=== PATIENT | male | born 1975 | race Caucasian/White ===

== ENCOUNTER 2019-04-05 11:54 | Emergency (ER) | payer OTHER, SELFPAY ==
[2019-04-05 12:06] VITALS: BP 121/72; PULSE 73; RESP 16; TEMP 36.8; O2SAT 100
--- NOTE | 2019-04-05 12:36 | ED.URI ---
HPI - URI/Sore Throat General Chief Complaint: Upper Respiratory Infection Stated Complaint: Cough Time Seen by Provider: 04/05/19 12:30 Source: patient and RN notes reviewed Mode of arrival: ambulatory Limitations: no limitations History of Present Illness HPI Narrative: Patient presents today complaining of cough since 1:00 this morning with clear sputum and rhinorrhea. Cough is significantly worsened when he is lying flat. Denies fever, shortness of breath, body aches, chills or sweats. No history of asthma or COPD. He recently started smoking again after 14 years. He has tried no [id number] medication for his symptoms prior to arrival. MD elicited complaint: cough Related Data Allergies Allergy/AdvReac Type Severity Reaction Status Date / Time No Known Allergies Allergy Unverified 11/01/16 15:54 Review of Systems Review of Systems: Narrative: CONSTITUTIONAL: Denies body aches, fever, chills, or sweats. EYES: Denies visual changes, redness, or discharge. ENT: Denies congestion, sore throat, or otalgia.+ Rhinorrhea CARDIOVASCULAR: Denies chest pain, palpitations, or edema. RESPIRATORY: Denies dyspnea.+ Cough GASTROINTESTINAL: Denies abdominal pain, nausea, vomiting, or diarrhea. GENITOURINARY: Denies dysuria or hematuria. SKIN: Denies rash, itching, or wounds. MUSCULOSKELETAL: Denies back pain, joint pain, or myalgia. NEUROLOGIC: Denies headache, numbness, tingling, or weakness. PSYCH: Denies depression or anxiety. PMFSH Social History Social History Gender identity (if verbalized by the patient): Male Comments At time of signature, I have reviewed and agree with nursing past medical, surgical, social and family history unless otherwise noted. Please see nursing chart for further information. There is no relevant family history pertinent to the presenting complaint Exam Narrative: Exam Narrative: GENERAL: Mildly ill-appearing, well-nourished, and in no acute distress. HEAD: Normocephalic, atraumatic. EYES: EOMI. No redness or drainage. Conjunctivae normal. ENT: Mucous membranes pink and moist. Nares congested with copious rhinorrhea. TMs normal bilaterally. Throat normal. Uvula midline. NECK: Normal AROM. Supple. No lymphadenopathy. CHEST: No respiratory distress. Clear to auscultation. HEART: Regular rate and rhythm. No murmur appreciated. Normal peripheral pulses. EXTREMITIES: Normal range of motion. No edema. SKIN: Warm, dry, no rash. NEURO: No focal deficits. Alert and oriented x3. Gait steady. PSYCH: Normal affect. No signs of depression or anxiety. Course Vital Signs Vital signs: Vital Signs Temperature 98.3 F 04/05/19 12:06 Pulse Rate 73 04/05/19 12:06 Respiratory Rate 16 04/05/19 12:06 Blood Pressure 121/72 04/05/19 12:06 Pulse Oximetry 100 04/05/19 12:06 Temperature 98.3 F 04/05/19 12:06 Pulse Rate 73 04/05/19 12:06 Respiratory Rate 16 04/05/19 12:06 Blood Pressure 121/72 04/05/19 12:06 Pulse Oximetry 100 04/05/19 12:06 Reviewed. Pt has been instructed to follow up with his PCP regarding his elevated blood pressure today. MDM - URI/Sore Throat Differential Diagnosis Differential diagnosis: Likely upper respiratory infection, sinusitis, viral infection and bronchitis Critical Care Time Critical Care Time Critical Care Time: No Discharge Plan Discharge Clinical Impression: Upper respiratory infection Qualifiers: URI type: unspecified URI Qualified Code(s): J06.9 - Acute upper respiratory infection, unspecified Patient Disposition: Home, Self-Care Condition: Stable Instructions: Upper Respiratory Infection (DC) Additional Instructions: Your symptoms are likely due to a viral illness, which is not treated with antibiotics. Virus symptoms can last for up to 10-14 days. Take the Tylenol or ibuprofen for pain or fever. Take Mucinex during the day. Take the Tessalon Perles at night. Rest and stay hydrated. Follow up with [facility]
== END 2019-04-05 12:42 | disposition home or self-care (01) ==
PROVIDERS: Emergency Provider Nurse Practitioner; PCP Nurse Practitioner Family
DX: J06.9 Acute upper respiratory infection, unspecified (principal)
CPT/HCPCS: 99213; G0463

== ENCOUNTER 2023-01-07 04:36 | Emergency (ER) | payer BC, SELFPAY ==
--- NOTE | ~2023-01-07 | XR_ITS ---
Portable chest x-ray Comparison: None Clinical History: Wheezing Findings: Lungs are clear, without focal consolidation or pleural effusion. Cardiomediastinal silho uette is unremarkable. Bones and soft tissues are unremarkable. Impression: Normal chest. Reviewed, dictated and finalized at location . FIRM PARTNER Impression: Normal chest.
[2023-01-07 04:40] VITALS: BP 118/79; PULSE 79; RESP 14; TEMP 37.2; O2SAT 94
--- NOTE | 2023-01-07 04:48 | ED.GENADULT ---
HPI - General Adult General Chief complaint: Fever Stated complaint: Fever off and on for past two days Time Seen by Provider: 01/07/23 04:38 History of Present Illness HPI narrative: This is a 39-year-old male presenting ED with flu-like symptoms x3 days. Patient says that he has had a headache, body aches fatigue and ear pain for the last 3 days. He has had a fever of 101.7. He has been taking Tylenol intermittently with some relief in his symptoms. He denies sore throat, nausea vomiting diarrhea chest pain shortness of breath or abdominal pain. Patient is here tonight for relief of his headache. Denies sick contacts at home. Related Data Allergies Allergy/AdvReac Type Severity Reaction Status Date / Time No Known Allergies Allergy Verified 01/07/23 04:42 [facility] Social History Social History Gender identity (if verbalized by the patient): Male Exam Narrative: APPEARANCE: No apparent distress. Head: tympanic membranes are normal, no erythema or exudates in the posterior oropharynx EYES: EOMI, NOSE: Atraumatic NECK: Trachea midline RESPIRATORY: No increased rate of breathing, isolated wheezing in the left upper lobe CARDIOVASCULAR: RRR, no peripheral edema ABDOMINAL: Non-distended MUSCULOSKELETAl: No obvious deformities NEURO: Alert. Moving 4/4 extremities SKIN:: Warm, dry. Normal color PSYCHIATRIC: Normal affect Course Vital Signs Vital signs: Vital Signs Temperature 99.0 F 01/07/23 04:40 Pulse Rate 79 01/07/23 04:40 Respiratory Rate 14 01/07/23 04:40 Blood Pressure 118/79 01/07/23 04:40 Pulse Oximetry 94 01/07/23 04:40 Oxygen Delivery Room Air 01/07/23 04:40 Temperature 99.0 F 01/07/23 04:40 Pulse Rate 72 01/07/23 06:00 Respiratory Rate 97 H 01/07/23 06:00 Blood Pressure 128/91 H 01/07/23 06:00 Pulse Oximetry 98 01/07/23 06:00 Oxygen Delivery Room Air 01/07/23 04:40 Medical Decision Making [facility] Narrative Medical decision making narrative: -Course: 39-year-old male presenting with 3 days of flu-like symptoms. COVID positive. Treated with Motrin Tylenol and dexamethasone. Chest x-ray negative. Vital signs stable and not requiring supplemental oxygen. Discharged with supportive care and return precautions. -DDX includes but is not limited to: Viral syndrome, strep throat, sinusitis, acute otitis media -Co-morbidities complicating care: smoker -Social determinants of health: patient works for [employer]. -Independent interpretation of studies: -Interventions: Toradol, dexamethasone, Tylenol -Shared decision making / Disposition:D/C'd -RX: Motrin Tylenol Vital Signs Vital Signs: Vital Signs Temperature 99.0 F 01/07/23 04:40 Pulse Rate 79 01/07/23 04:40 Respiratory Rate 14 01/07/23 04:40 Blood Pressure 118/79 01/07/23 04:40 Pulse Oximetry 94 01/07/23 04:40 Oxygen Delivery Room Air 01/07/23 04:40 Temperature 99.0 F 01/07/23 04:40 Pulse Rate 72 01/07/23 06:00 Respiratory Rate 97 H 01/07/23 06:00 Blood Pressure 128/91 H 01/07/23 06:00 Pulse Oximetry 98 01/07/23 06:00 Oxygen Delivery Room Air 01/07/23 04:40 Lab Data Labs: Lab Results 01/07/23 Range/Units 04:54 Influenza A (RT-PCR) Negative (Negative) Influenza B (RT-PCR) Negative (Negative) RSV (RT-PCR) Negative (Negative) SARS-CoV-2 RNA (RT-PCR) Positive A (Negative) Discharge Plan Discharge Clinical Impression: COVID Patient Disposition: Home, Self-Care Condition: Stable Instructions: Antibiotic Form, Viral Syndrome (ED) Additional Instructions: You have covid. Please take Motrin Tylenol for symptoms. Drink plenty of fluids. Return ED if you develop chest pain shortness of breath or unable to tolerate liquids. Otherwise please follow-up your primary care physician. Prescriptions: New ibuprofen 800 mg tablet
[2023-01-07] MEDS: KETOROLAC 30 MG/ML VIAL (*BKC) IM (04:55)
[2023-01-07] MEDS: ACETAMINOPHEN 500 MG TABLET 1000 MG PO (04:55)
[2023-01-07 05:40] LABS: Influenza A QL RT-PCR Negative (Negative); Influenza B QL RT-PCR Negative (Negative); RSV RNA, RT-PCR Negative (Negative); SARS-CoV-2 RNA PCR Positive (Negative)
[2023-01-07 05:50] VITALS: O2SAT 97
[2023-01-07 06:00] VITALS: BP 128/91; PULSE 72; RESP 97; O2SAT 98
[2023-01-07 06:15] VITALS: BP 126/79; PULSE 71; RESP 14; O2SAT 99
[2023-01-07 06:20] VITALS: RESP 16
== END 2023-01-07 06:25 | disposition home or self-care (01) ==
PROVIDERS: Emergency Provider Emergency Medicine
DX: U07.1 COVID-19 (principal)
CPT/HCPCS: 71045; 87637; 96372; 99284; A9270; J1100; J1885

== ENCOUNTER 2023-02-23 08:27 | Emergency (ER) | payer BC, SELFPAY ==
[2023-02-23] VITALS (8 sets, daily range): BP systolic 118–133; BP diastolic 77–87; PULSE 64–81; RESP 13–20; TEMP 36.4; O2SAT 95–99
--- NOTE | ~2023-02-23 | XR_ITS ---
XR chest 2V DATE: 02/23/2023 09:01 INDICATION: Shortness of breath since since Covid infection 1 month ago TECHNIQUE: PA and lateral views COMPARISON: 01/07/2023 portable AP chest FINDINGS: Normal heart size. No hilar or mediastinal enlargement. Mild aortic arch calcification. No pulmonary infiltrate or consolidation, pleural effusion or pulmonary vascular congestion or pneumo thorax is detected. No active cardiopulmonary disease IMPRESSION: Reviewed, dictated and finalized at location A. CTOR OPERATING IMPRESSION:
--- NOTE | 2023-02-23 08:47 | ECG_ITS ---
Measurements Intervals [place] Rate: 74 P: 45 TN: 134 QRS: 74 QRSD: 90 T: 62 QT: 412 QTc: 457 Interpretive Statements SINUS RHYTHM NO PREVIOUS ECG AVAILABLE FOR COMPARISON Electronically Signed On 02-23-2023 13:52:54 PARTS CLASSIFIER by Teena Granado M.D.
[2023-02-23 09:14] LABS: Basophils Absolute Auto 0.1 K/mm3 (0.0-0.1); Basophils Percent Auto 1.1 % (0.2-1.2); Eosinophils Absolute Auto 1.1 K/mm3 (0-0.3); Eosinophils Percent Auto 11.6 % (0-4.4); Hematocrit 47.4 % (42.0-52.0); Hemoglobin 15.6 g/dL (14.0-18.0); Immature Granulocyte Absolute 0.03 K/mm3 (0.00-0.031); Immature Granulocyte Percent A 0.3 % (0-0.5); Lymphocytes Absolute Auto 3.25 K/mm3 (0.9-3.2); Mean Corpuscular HGB Conc 32.9 g/dl (32-36); Mean Corpuscular Hemoglobin 30.4 pg (26-34); Mean Corpuscular Volume 92.4 fl (80-100); Mean Platelet Volume 9.8 fl (7.4-10.4); Monocytes Absolute Auto 0.7 K/mm3 (0.1-0.6); Monocytes Percent Auto 7.5 % (2.6-8.5); Neutrophils Absolute Auto 3.9 K/mm3 (1.3-6.7); Neutrophils Percent Auto 43.5 % (45.5-73.1); Platelet Count Result 255 k/mm3 (150-375); Red Blood Count 5.13 M/mm3 (4.6-6.20); Red Cell Distribution Width 12.5 % (11.5-14.5)
--- NOTE | 2023-02-23 09:15 | ED.SOB ---
HPI - SOB/Dyspnea General Chief Complaint: Shortness of Breath/Dyspnea Stated Complaint: difficulty breathing Time Seen by Provider: 02/23/23 08:57 History of Present Illness HPI Narrative: Reports for evaluation for shortness of breath and chest tightness for approximately 1 month. Patient was diagnosed with COVID on 01/07/2023, states since then he has been having a productive cough with generalized chest tightness. He states he chronically has a smoker's talked cough, but feels that the cough is worsened since he was diagnosed with COVID. He states today he woke up with shortness of breath which feels worse which prompted him to come to the ED. He is also reporting nasal congestion. He denies fever, otalgia, sore throat, abdominal pain, nausea, vomiting, diarrhea, lower extremity edema or calf pain, history of VTE. He smokes approximately 1 pack per day for total of 23 years. Denies prior diagnosis of COPD or asthma. Related Data Allergies Allergy/AdvReac Type Severity Reaction Status Date / Time No Known Allergies Allergy Verified 02/23/23 08:46 Review of Systems Review of Systems: CONSTITUTIONAL: Denies fever, chills, or sweats. EYES: Denies visual changes, redness, or discharge. ENT: See HPI CARDIOVASCULAR: Denies chest pain, palpitations, or edema. RESPIRATORY: See HPI GASTROINTESTINAL: Denies abdominal pain, nausea, vomiting, or diarrhea. GENITOURINARY: Denies dysuria or hematuria. SKIN: Denies rash or itching. MUSCULOSKELETAL: Denies back pain, joint pain, or myalgia. NEUROLOGIC: Denies headache, numbness, or weakness. PSYCHIATRIC: Denies anxiety or depression. PMFSH Social History Social History Gender identity (if verbalized by the patient): Male Exam Narrative: GENERAL: Well-appearing, well-nourished, and in no acute distress. HEAD: Normocephalic, atraumatic. EYES: PERRLA and EOMI. ENT: Nares clear, no rhinorrhea or epistaxis. Mucous membranes moist. NECK: Supple. CHEST: No respiratory distress. Inspiratory and expiatory wheezing throughout all lung tian. Expiratory phase longer than inspiratory phase. No crackles or rhonchi. HEART: Regular rate and rhythm. No murmur heard. Normal peripheral pulses. ABDOMEN: Soft, nontender, nondistended, normal active bowel sounds. EXTREMITIES: Normal range of motion. No edema. Negative Homans bilaterally. SKIN: Warm, dry, no rash. NEURO: No focal deficits. Alert and oriented x3 Course Vital Signs Vital signs: Vital Signs Temperature 97.6 F 02/23/23 08:40 Pulse Rate 72 02/23/23 08:40 Respiratory Rate 20 02/23/23 08:40 Blood Pressure 118/77 02/23/23 08:40 Pulse Oximetry 99 02/23/23 08:40 Oxygen Delivery Room Air 02/23/23 08:40 Temperature 97.6 F 02/23/23 08:40 Pulse Rate 65 02/23/23 11:11 Respiratory Rate 14 02/23/23 11:11 Blood Pressure 129/84 02/23/23 11:11 Pulse Oximetry 95 02/23/23 11:11 Oxygen Delivery Room Air 02/23/23 11:11 MDM - SOB/Dyspnea MDM Narrative Medical decision making narrative: 47-year-old male reports for evaluation for persistent dyspnea and chest tightness for 1 month. See HPI for further history. Vitals are stable and he is satting 99% on room air, no active respiratory distress. Exam is significant for wheezing throughout all lung tian. Chest x-ray shows no acute cardiopulmonary disease. CBC and chemistries are largely unremarkable. Troponin less than 0.012. EKG shows no ischemic changes. BNP normal. COVID, flu and RSV are negative. PERC negative. Patient received DuoNebs and Solu-Medrol with improvement in symptoms. He is continuing to sat 95-99% on room air. Labs and imaging discussed. Symptoms likely secondary to undiagnosed COPD with exacerbation versus atypical pneumonia or bronchitis. Will d/c home and start him on doxycycline, Medrol Dosepak and albuterol inhaler and encourage close follow-up with PC
[2023-02-23] MEDS: ALBUTEROL SULFATE NEB 2.5 MG/3 ML INH INHALATION (09:23)
[2023-02-23] MEDS: IPRATROPIUM BR 0.02% INH SOLN 0.5 MG/2.5 ML VIAL INHALATION (09:23)
[2023-02-23] MEDS: MAGNESIUM SULF 2 GM/WATER 50ML 2 GM/50 ML BAG IVPB (09:31)
[2023-02-23] MEDS: methylPREDNISolone SOD SUCC 125 MG VIAL IV PUSH (09:31)
[2023-02-23 09:42] LABS: Alanine Aminotransferase 15 U/L (6-50); Albumin Level 4.2 g/dL (3.5-5.1); Alkaline Phosphatase 85 U/L (38-126); Anion Gap 5 mmol/L (8-16); Aspartate Amino Transferase 25 U/L (17-59); Bilirubin,Total 0.5 mg/dL (0.2-1.3); Blood Urea Nitrogen 15 mg/dL (9-20); Calcium 9.4 mg/dL (8.4-10.2); Carbon Dioxide 31 mmol/L (22-30); Chloride 104 mmol/L (98-107); Estimated CRCL calculation 105 ml/min; Estimated Glomerular Filt Rate > 60; Glucose 84 mg/dL (65-110); Sodium 140 mmol/L (137-145)
[2023-02-23 09:52] LABS: NT Pro B Type Natriuretic Pept < 20 pg/mL (19.9-100); Troponin I < 0.012 ng/mL (0.000-0.034)
[2023-02-23 10:19] LABS: Influenza A QL RT-PCR Negative (Negative); Influenza B QL RT-PCR Negative (Negative); RSV RNA, RT-PCR Negative (Negative); SARS-CoV-2 RNA PCR Negative (Negative)
== END 2023-02-23 12:29 | disposition home or self-care (01) ==
PROVIDERS: Emergency Medicine; Emergency Provider Physician Assistant
DX: J40 Bronchitis, not specified as acute or chronic (principal); F17.200 Nicotine dependence, unspecified, uncomplicated; Z20.822 Contact with and (suspected) exposure to COVID-19
CPT/HCPCS: 36415; 71046; 80053; 83880; 84484; 85025; 87637; 93005; 94640; 96365; 96375; 99284; J2930; J3475

== ENCOUNTER 2024-02-18 09:54 | Emergency (ER) | payer SELFPAY ==
[2024-02-18 10:09] VITALS: BP 108/71; PULSE 88; RESP 20; TEMP 36.3; O2SAT 98
--- NOTE | 2024-02-18 11:02 | ED.URI ---
HPI - URI/Sore Throat General Chief Complaint: Upper Respiratory Infection Stated Complaint: SOB,cough Time Seen by Provider: 02/18/24 11:03 Source: patient, RN notes reviewed and old records reviewed Mode of arrival: ambulatory Limitations: no limitations History of Present Illness HPI Narrative: 48-year-old male presents to the [facility] with complaints of cough, shortness of breath. States that he woke up coughing about 230 this morning. Has had shortness of breath since. Has been out of his inhaler for several weeks. Related Data Allergies Allergy/AdvReac Type Severity Reaction Status Date / Time No Known Allergies Allergy Verified 02/18/24 10:17 Review of Systems Review of Systems: All systems reviewed & are unremarkable except as noted in HPI and below Constitutional: Constitutional: Reports no additional constitutional complaints ENT: Reports system reviewed and no additional complaints, except as documented Cardiovascular: Cardiovascular: Reports no additional cardiovascular complaints, Denies chest pain and Denies dyspnea Respiratory: Respiratory: Reports as per HPI, Denies chest congestion, Reports cough, Reports dyspnea and Reports wheezing Musculoskeletal: Musculoskeletal: Reports no additional musculoskeletal complaints Integumentary/Breasts: Skin/Breast: Reports system reviewed and no additional complaints, except as docu [facility] Social History Social History (Updated 02/18/24 @ 18:12 by Shanice Alejo, MANAGER SUPPLIER) Smoking status: Current every day smoker Gender identity (if verbalized by the patient): Male Comments At the time of my signature, I reviewed and agree with the nursing past medical, surgical, social, and family history. There is no relevant family history pertinent to the patient complaint. Exam Const: General: cooperative, no acute distress, well developed, alert, uncomfortable and well nourished Nutritional Appearance: well nourished Orientation/consciousness: patient oriented x3 Limitations: no limitations HENMT: Head: normal to inspection Ears: hearing grossly normal bilaterally, external ears normal and TM's normal bilaterally Face/Nose/Sinus: normal facial exam and face symmetric Face and sinus: normal facial exam and face symmetric Mouth: Yes Normal oral and palatal mucosa present, Yes lip normal and Yes tongue normal Throat: posterior oropharynx normal, tonsils normal and uvula midline Eyes: General: appearance normal, both eyes and all related structures Neck: Neck: normal visual inspection, full ROM, no lymphadenopathy and no meningeal signs Chest: Chest palpation & inspection: normal inspection of the chest Resp: Effort & Inspection: normal respiratory effort and able to speak in complete sentences Auscultation: no crackles, no rales, no rhonchi and wheezes expiratory wheezes, inspiratory wheezes and throughout Cardio: Rate: regular rate Skin: General skin exam: normal color and no rashes or lesions noted Neuro: General: patient oriented x3, gait normal, moves all extremities and no meningeal signs Cognition (Neuro): normal cognition Speech: normal speech Gait exam (Neuro): Normal gait present Extrem: General: normal to inspection, full ROM, capillary refill normal and normal gait Psych: Appearance: grossly normal and well kempt Mental Status: mental status grossly normal Speech and movement: Normal speech and movement present and Clear speech present Affect: normal affect Attitude: cooperative Course Course Emergency Course: Patient reassessed post breathing treatment, reports improvement of breathing. Wheezing now only expiratory right and left upper, faint. Otherwise cleared now to auscultation. Level of Care: Express Care Visit Vital Signs Vital signs: Vital Signs Temperature 97.4 F L 02/18/24 10:09 Pulse Rate 88 02/18/24 10:09 Respiratory Rate 20 02/18/24 10:09 Blood Pressure 108/71 02/18/24 10:09 Pulse Oximetry 98 02/18/24 10:09 Oxygen Delivery Room Air 02/18/24 10:09 Temperature 97.4 F L 02/18/24 10:09 Pulse Rate 88 02/18/24 10:09 Respiratory Rate 20 02/18/24 10:09 Blood Pressure 108/71 02/18/24 10:09 Pulse Oximetry 98 02/18/24 10:09 Oxygen Delivery Room Air 02/18/24 10:09 Reviewed MDM - URI/Sore Throat MDM Narrative Medical decision making narrative: Patient sitting in exam room. Nontoxic, vitals stable. Patient presents cough and shortness of breath. Wheezing noted on exam. Breathing treatment done, improvement of symptoms Patient appropriate for outpatient treatment with inhaler, referral to primary, prednisone Discharge instructions reviewed with patient, as well as provided in writing per nursing staff. The instructions also include specific and strict return/GO TO THE ER as well as f/u information. All questions have been answered, and the patient deny any further questions with discharge and discharge plan. Some parts of this dictation were generated by voice recognition software and may contain typographical and/or grammatical inaccuracies. Differential Diagnosis Differential diagnosis: Likely upper respiratory infection, viral infection and bronchitis Critical Care Time Critical Care Time Critical Care Time: No Discharge Plan Discharge Clinical Impression: Bronchitis Patient Disposition: Home, Self-Care Condition: Stable Instructions: Antibiotic Form, Acute Bronchitis (ED) Additional Instructions: Stop smoking Take prednisone as prescribed Use your inhaler as prescribed Follow-up with primary care provider For new or worsening symptoms go directly to the emergency room Patient Language: Belarusian Prescriptions: New prednisone 20 mg tablet See Rx Instructions .Route .COMPLEX Qty: 9 0RF Rx Instructions: Take 40 mg daily for 3 days, 20 mg daily for 3 days albuterol sulfate 90 mcg/actuation HFA aerosol inhaler 2 puff inhalation QID PRN (Reason: shortness of breath or wheezing) Qty: 6.7 0RF Follow-up/Referrals: PHYSICIAN,AUTOMATIC CASTING MACHINE OPERATOR [Primary Care Provider] - Stand Alone Forms: Work/School Release IP Time of Disposition: 11:41
[2024-02-18] MEDS: IPRATROPIUM 0.5 MG/ALBUTEROL SULFATE 2.5 MG AMPUL.NEB 3 ML INHALATION (11:16)
== END 2024-02-18 11:45 | disposition home or self-care (01) ==
PROVIDERS: Emergency Provider Nurse Practitioner
DX: J40 Bronchitis, not specified as acute or chronic (principal); F17.200 Nicotine dependence, unspecified, uncomplicated
CPT/HCPCS: 99213; G0463

== ENCOUNTER 2024-08-26 01:59 | Emergency (ER) | payer SELFPAY ==
--- NOTE | ~2024-08-26 | XR_ITS ---
Portable chest x-ray Comparison: 02/23/2023 Clinical History: Wheezing Findings: Lungs are clear, without focal consolidation or pleural effusion. Cardiomediastinal silho uette is stable. Bones and soft tissues are unremarkable. Impression: Normal chest. Reviewed, dictated and finalized at [facility]. Impression: Normal chest.
[2024-08-26 02:09] VITALS: BP 114/75; PULSE 59; RESP 20; TEMP 36.6; O2SAT 96
--- NOTE | 2024-08-26 02:09 | ED.GENADULT ---
HPI - General Adult General Chief complaint: Shortness of Breath/Dyspnea Stated complaint: sob, wheezing Time Seen by Provider: 08/26/24 02:00 History of Present Illness HPI narrative: 48-year-old male presenting to the emergency department for evaluation for worsening shortness of breath. Patient does have history of asthma. While he was camping he had onset of wheezing and felt too bad to take the time to look for his inhaler. Patient called EMS and patient was treated with a DuoNeb EN route. Upon arrival emergency department patient states he does feel significantly improved and is resting comfortably. Patient states he does have history of asthma does continue to smoke. Related Data Allergies Allergy/AdvReac Type Severity Reaction Status Date / Time No Known Allergies Allergy Verified 02/18/24 10:17 Review of Systems Review of Systems: All systems reviewed & are unremarkable except as noted in HPI and below PMFSH Social History Social History (Updated 02/18/24 @ 18:12 by Shanice Alejo, TERRAZZO WORKER) Smoking status: Current every day smoker Gender identity (if verbalized by the patient): Male Exam Narrative: APPEARANCE: Well appearing, no pain, no distress, well-nourished. HEAD: normocephalic, atraumatic. EYES: PERRLA/EOMI, conjunctivae clear. NOSE: Normal no drainage EARS:TMS clear with good light reflex. THROAT: Pharynx clear, no exudate. NECK: Supple. No adenopathy, no masses. RESPIRATORY: Expiratory wheeze CARDIOVASCULAR: Regular rate and rhythm without murmurs rubs or gallops. ABDOMINAL: Soft, nontender, nondistended, normal bowel sounds MUSCULOSKELETAL: Moves all extremities. Strength/ROM intact, No edema, No calf tenderness. NEURO: Alert. Cranial nerves II through XII intact. Good gait. Good coordination SKIN: Warm, dry. Normal Color Course Vital Signs Vital signs: Vital Signs Temperature 98 F 08/26/24 02:09 Pulse Rate 59 L 08/26/24 02:09 Respiratory Rate 20 08/26/24 02:09 Blood Pressure 114/75 08/26/24 02:09 Pulse Oximetry 96 08/26/24 02:09 Oxygen Delivery Room Air 08/26/24 02:09 Temperature 98 F 08/26/24 02:09 Pulse Rate 78 08/26/24 03:30 Respiratory Rate 20 08/26/24 03:30 Blood Pressure 103/68 08/26/24 03:30 Pulse Oximetry 94 08/26/24 03:30 Oxygen Delivery Room Air 08/26/24 02:15 Medical Decision Making MDM Narrative Medical decision making narrative: 48-year-old male with history of chronic bronchitis that continues to smoke presents to emergency department for evaluation for shortness breath. Patient's shortness breath was improved with a breathing treatment EN route. Patient did have some minor wheeze on initial evaluation and he was treated with an additional breathing treatment. Patient feels further improved. Patient's chest x-ray was negative for acute cardiopulmonary abnormality. Patient was encouraged to quit smoking. Patient will be started on prednisone burst for the next 5 days and provided additional albuterol. Patient was encouraged of close follow-up with his primary care physician. Differential Diagnosis Differential Diagnosis: Pneumonia, COPD, asthma Vital Signs Vital Signs: Vital Signs Temperature 98 F 08/26/24 02:09 Pulse Rate 59 L 08/26/24 02:09 Respiratory Rate 20 08/26/24 02:09 Blood Pressure 114/75 08/26/24 02:09 Pulse Oximetry 96 08/26/24 02:09 Oxygen Delivery Room Air 08/26/24 02:09 Temperature 98 F 08/26/24 02:09 Pulse Rate 78 08/26/24 03:30 Respiratory Rate 20 08/26/24 03:30 Blood Pressure 103/68 08/26/24 03:30 Pulse Oximetry 94 08/26/24 03:30 Oxygen Delivery Room Air 08/26/24 02:15 Imaging Data Radiologist's impression: Impressions Chest X-Ray 08/26/24 05:26 Impression: Normal chest. Discharge Plan Discharge Clinical Impression: Chronic bronchitis Patient Disposition: Home Condition: Stable Instructions: Antibiotic Form, Chronic Bronchitis (DC) Additional Instructions: Quit smoking. Take prednisone as directed for the next 5 days until completed. Albuterol inhaler as needed for shortness of breath. Have close follow-up with your primary care physician. If you have any worsening symptoms then please call or return to the emergency department. Patient Language: Polish Prescriptions: New prednisone 50 mg tablet 50 mg PO DAILY 5 Days Qty: 5 0RF albuterol sulfate 90 mcg/actuation HFA aerosol inhaler 1 puff inhalation QID Qty: 6.7 0RF Discontinued prednisone 20 mg tablet See Rx Instructions .Route .COMPLEX Qty: 9 0RF Rx Instructions: Take 40 mg daily for 3 days, 20 mg daily for 3 days albuterol sulfate 90 mcg/actuation HFA aerosol inhaler 2 puff inhalation QID PRN (Reason: shortness of breath or wheezing) Qty: 6.7 0RF Follow-up/Referrals: PHYSICIAN,CROP RESEARCH SCIENTIST [Primary Care Provider] -
[2024-08-26 02:15] VITALS: O2SAT 96
[2024-08-26] MEDS: predniSONE 20 MG TABLET 60 MG PO (02:20)
[2024-08-26] MEDS: ALBUTEROL SULFATE NEB 2.5 MG/3 ML INH 5 MG INHALATION (02:21)
[2024-08-26 02:22] VITALS: PULSE 65; RESP 20
[2024-08-26 02:40] VITALS: PULSE 67; RESP 20
[2024-08-26 03:30] VITALS: BP 103/68; PULSE 78; RESP 20; O2SAT 94
== END 2024-08-26 03:30 | disposition home or self-care (01) ==
PROVIDERS: Emergency Provider Emergency Medicine
DX: J44.89 Other specified chronic obstructive pulmonary disease (principal); F17.200 Nicotine dependence, unspecified, uncomplicated
CPT/HCPCS: 71045; 94640; 99283; J7512

== ENCOUNTER 2024-10-09 01:41 | Emergency (ER) | payer MEDICAID, SELFPAY ==
--- NOTE | ~2024-10-09 | XR_ITS ---
EXAMINATION: XR chest 1V portable DATE: 10/09/2024 02:28 INDICATION: Asthma TECHNIQUE: frontal view of the chest was obtained. COMPARISON: Chest radiograph dated 08/26/2024 FINDINGS: The lungs remain clear with no focal airspace opacities, pulmonary edema, pleural effusion or pneumot horax. The cardiomediastinal silhouette is normal. Visualized bones and soft tissues are unremarkable . IMPRESSION: 1. No acute cardiopulmonary disease. Reviewed, dictated and finalized at location A.
[2024-10-09 01:50] VITALS: BP 122/80; PULSE 82; RESP 22; TEMP 36.3; O2SAT 100
[2024-10-09 02:02] VITALS: BP 130/81; PULSE 77; RESP 24; TEMP 36.3; O2SAT 100
[2024-10-09] MEDS: SODIUM CHLORIDE 0.9% IV 1,000 ML 999 ML IV CONT (02:06)
[2024-10-09] MEDS: MAGNESIUM SULF 2 GM/WATER 50ML 2 GM/50 ML BAG IVPB (02:10)
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
[2024-10-09 02:24] LABS: Hematocrit 45.4 % (42.0-52.0); Hemoglobin 15.2 g/dL (14.0-18.0); Immature Granulocyte Percent A 0.3 % (0-0.5); Lymphocytes Absolute Auto 3.21 K/mm3 (0.9-3.2); Mean Corpuscular HGB Conc 33.5 g/dl (32-36); Mean Corpuscular Hemoglobin 30.5 pg (26-34); Mean Corpuscular Volume 91.0 fl (80-100); Nucleated Red Blood Cells Absolute Auto 0.000 K/mm3 (0.0-0.012); Nucleated Red Blood Cells Perc 0.0 % (0.0-0.2); Platelet Count Result 263 k/mm3 (150-375); Red Blood Count 4.99 M/mm3 (4.6-6.20); White Blood Count 10.3 K/mm3 (4.5-10.0)
[2024-10-09] MEDS: ALBUTEROL SULFATE NEB 2.5 MG/3 ML INH 10 MG INHALATION (02:25)
[2024-10-09] MEDS: IPRATROPIUM BR 0.02% INH SOLN 0.5 MG/2.5 ML VIAL 1 MG INHALATION (02:25)
[2024-10-09 02:34] VITALS: PULSE 70; RESP 18
--- NOTE | 2024-10-09 02:35 | ED.ASTHMA ---
HPI - Asthma General Chief Complaint: Asthma Stated Complaint: asthma Time Seen by Provider: 10/09/24 02:02 History of Present Illness HPI Narrative: 48-year-old male with a history of asthma as well as chronic bronchitis. He presents to the emergency department with shortness or breath. States it feels like the last time he had an asthma exacerbation. No history of hospitalizations or intubations according to the patient. He states he ran out of his albuterol inhaler at home. Last time he had symptoms was in July. Denies any triggers but states that he has been coughing. No nausea, vomiting, chest pain, fever, chills. Was otherwise in his normal state of health. Patient is audible wheezing and tachypneic in triage. Related Data Allergies Allergy/AdvReac Type Severity Reaction Status Date / Time No Known Allergies Allergy Verified 10/09/24 01:54 Review of Systems Review of Systems: As reviewed above in [facility] Social History Social History Smoking status: Current every day smoker Gender identity (if verbalized by the patient): Male Exam Narrative: GENERAL: [Well-appearing, well-nourished, and in no acute distress.] HEAD: [Normocephalic, atraumatic.] EYES: [PERRLA and EOMI.] ENT: Nares clear, no rhinorrhea or epistaxis. Mucous membranes moist. NECK: Supple. CHEST: Decreased air entry with tachypnea and wheezing on auscultation in most lung tian. No retractions, speaking with some dyspnea HEART: [Regular rate and rhythm]. No murmur heard. [Normal peripheral pulses.] ABDOMEN: [Soft, nondistended], [nontender], [No rigidity or guarding] EXTREMITIES: Normal range of motion. [No edema.] SKIN: Warm, dry, no rash. NEURO: [No focal deficits]. Alert and oriented [x3.] PSYCH: [Normal mood and affect.] Course Vital Signs Vital signs: Vital Signs Temperature 36.3 C L 10/09/24 01:50 Pulse Rate 82 10/09/24 01:50 Respiratory Rate 22 H 10/09/24 01:50 Blood Pressure 122/80 10/09/24 01:50 Pulse Oximetry 100 10/09/24 01:50 Oxygen Delivery Simple Face Mask 10/09/24 01:50 Oxygen Flow Rate 8 10/09/24 01:50 Temperature 36.4 C 10/09/24 04:13 Pulse Rate 57 L 10/09/24 04:13 Respiratory Rate 18 10/09/24 04:13 Blood Pressure 132/61 10/09/24 04:13 Pulse Oximetry 100 10/09/24 04:13 Oxygen Delivery High Flow Nasal Cannula 10/09/24 03:33 Oxygen Flow Rate 3 10/09/24 03:33 MDM - Asthma MDM Narrative Medical decision making narrative: 48-year-old male with a history of asthma as well as chronic bronchitis. He presents to the emergency department with shortness or breath. States it feels like the last time he had an asthma exacerbation. No history of hospitalizations or intubations according to the patient. He states he ran out of his albuterol inhaler at home. Last time he had symptoms was in July. Denies any triggers but states that he has been coughing. No nausea, vomiting, chest pain, fever, chills. Was otherwise in his normal state of health. Patient is audible wheezing and tachypneic in triage. Patient has some expiratory wheezing on auscultation with decreased air entry and some tachypnea with conversational dyspnea. Saturating well on room air. No tachycardia or blood pressure concerns. Given patient's significant asthma exacerbation respiratory therapy was called to bedside for 1 hour of continuous nebulization treatments including albuterol and Atrovent. He was given steroids as well as a magnesium bolus and fluid boluses. Laboratory studies obtained as well as a chest x-ray to rule out pneumonia, bronchitis or pneumothorax. Patient placed on shelter monitor and pulse oximetry infrequently re-evaluated. Patient had significant improvement during repeat auscultation repeat evaluations. Doing better on assessments and comfortable. X-ray without any acute findings such as pneumonia or bronchitis. Laboratory studies are reassuring. Patient saturating well on room air with normal vital signs. Observed here for several hours with no recurrence of symptoms. Safe for discharge home and will be sent home with refill of his albuterol and given steroids for several days. Medical Records Attestation: I reviewed the patient's medical records. Lab Data Attestation: I reviewed the patient's lab results. 10/09/24 02:19 08/10/25 02:19 Labs: Lab Results 10/09/24 Range/Units 02:19 WBC 10.3 H (4.5-10.0) K/mm3 RBC 4.99 (4.6-6.20) M/mm3 Hgb 15.2 (14.0-18.0) g/dL Hct 45.4 (42.0-52.0) % MCV 91.0 (80-100) fl MCH 30.5 (26-34) pg MCHC 33.5 (32-36) g/dl RDW 12.4 (11.5-14.5) % Plt Count 263 (150-375) k/mm3 MPV 9.3 (7.4-10.4) fl Immature Gran % (Auto) 0.3 (0-0.5) % Neut % (Auto) 52.7 (45.5-73.1) % Lymph % (Auto) 31.2 (18.3-44.2) % [place] % (Auto) 7.6 (2.6-8.5) % Eos % (Auto) 7.6 H (0-4.4) % Baso % (Auto) 0.6 (0.2-1.2) % Lymph # (Auto) 3.21 H (0.9-3.2) K/mm3 [place] # (Auto) 0.8 H (0.1-0.6) K/mm3 Eos # (Auto) 0.8 H (0-0.3) K/mm3 Baso # (Auto) 0.1 (0.0-0.1) K/mm3 Abs Immat Gran (auto) 0.03 (0.00-0.031) K/mm3 Absolute Neuts (auto) 5.4 (1.3-6.7) K/mm3 Absolute Nucleated RBC 0.000 (0.0-0.012) K/mm3 Nucleated RBC % 0.0 (0.0-0.2) % Sodium 139 (137-145) mmol/L Potassium 3.8 (3.4-5.0) mmol/L Chloride 104 (98-107) mmol/L Carbon Dioxide 28 (22-30) mmol/L Anion Gap 7 (4-12) mmol/L BUN 13 (9-20) mg/dL Creatinine 0.97 (0.7-1.3) mg/dL Estim Creat Clear Calc 87 ml/min Estimated GFR > 60 (59 - ) Glucose 82 (65-110) mg/dL Calcium 9.5 (8.4-10.2) mg/dL Imaging Data Attestation: I personally reviewed and interpreted this imaging study as follows: My impression: no acute findings Critical Care Time Critical Care Time Critical Care Time: Yes Total Critical Care Time: 35 Discharge Plan Discharge Clinical Impression: Asthma with acute exacerbation Patient Disposition: Home Condition: Stable Instructions: Antibiotic Form, Asthma (ED) Additional Instructions: Follow-up with regular doctor, we have prescribed to a refill of your albuterol in several days with steroids. Return with any emergent concerns. Patient Language: Serbian Prescriptions: New prednisone 50 mg tablet 50 mg PO DAILY 5 Days Qty: 5 0RF albuterol sulfate 90 mcg/actuation HFA aerosol inhaler 2 puff inhalation QID PRN (Reason: shortness of breath or wheezing) Qty: 8.5 0RF No Action prednisone 50 mg tablet 50 mg PO DAILY 5 Days Qty: 5 0RF albuterol sulfate 90 mcg/actuation HFA aerosol inhaler 1 puff inhalation QID Qty: 6.7 0RF Follow-up/Referrals: PHYSICIAN,EDUCATIONAL TECHNOLOGY COORDINATOR [Primary Care Provider] - Time of Disposition: 04:03
[2024-10-09 02:46] LABS: Anion Gap 7 mmol/L (4-12); Blood Urea Nitrogen 13 mg/dL (9-20); Calcium 9.5 mg/dL (8.4-10.2); Carbon Dioxide 28 mmol/L (22-30); Chloride 104 mmol/L (98-107); Estimated CRCL calculation 87 ml/min; Estimated Glomerular Filt Rate > 60; Glucose 82 mg/dL (65-110); Potassium 3.8 mmol/L (3.4-5.0); Sodium 139 mmol/L (137-145)
[2024-10-09 03:32] VITALS: PULSE 77; RESP 18
[2024-10-09 03:33] VITALS: O2SAT 97
[2024-10-09 04:13] VITALS: BP 132/61; PULSE 57; RESP 18; TEMP 36.4; O2SAT 100
== END 2024-10-09 04:14 | disposition home or self-care (01) ==
PROVIDERS: Emergency Provider Student in an Organized Health Care Education/Training Program
DX: J45.901 Unspecified asthma with (acute) exacerbation (principal); F17.200 Nicotine dependence, unspecified, uncomplicated
CPT/HCPCS: 36415; 71045; 80048; 85025; 94640; 96365; 96375; 99284; J2919; J3475; J7030

== ENCOUNTER 2024-12-17 06:09 | Emergency (ER) | payer OTHER, SELFPAY ==
--- NOTE | ~2024-12-17 | XR_ITS ---
Examination: XR chest 2V Clinical History: cough Comparison: 10/09/2024 Technique: PA and Lateral Findings: Cardiomediastinal silhouette normal size and configuration. Lungs clear. No acute bony abnormality. IMPRESSION: 1. No acute cardiopulmonary findings. Reviewed, dictated and finalized at location R.
[2024-12-17 06:14] VITALS: BP 123/84; PULSE 71; RESP 22; TEMP 36.8; O2SAT 99
[2024-12-17 07:14] VITALS: O2SAT 100
[2024-12-17 07:16] VITALS: BP 121/82; PULSE 64; RESP 18; O2SAT 100
--- NOTE | 2024-12-17 07:42 | ED_ITS ---
HPI - General Adult General Chief complaint: Upper Respiratory Infection Stated complaint: shortness of breath, cough Time Seen by Provider: 12/17/24 07:20 History of Present Illness HPI narrative: 49-year-old male presents to the emergency department for evaluation for persistent cough and congestion. Patient states he is a smoker. Patient states he does have chronic bronchitis. Patient states he did run out of his albuterol inhaler last night. Related Data Allergies Allergy/AdvReac Type Severity Reaction Status Date / Time No Known Allergies Allergy Verified 10/09/24 01:54 Review of Systems Review of Systems: All systems reviewed & are unremarkable except as noted in HPI and below PMFSH Social History Social History Smoking status: Current every day smoker Gender identity (if verbalized by the patient): Male Exam Narrative: APPEARANCE: Well appearing, no pain, no distress, well-nourished. HEAD: normocephalic, atraumatic. EYES: PERRLA/EOMI, conjunctivae clear. NOSE: Normal no drainage EARS:TMS clear with good light reflex. THROAT: Pharynx clear, no exudate. NECK: Supple. No adenopathy, no masses. RESPIRATORY: Expiratory wheeze CARDIOVASCULAR: Regular rate and rhythm without murmurs rubs or gallops. ABDOMINAL: Soft, nontender, nondistended, normal bowel sounds MUSCULOSKELETAL: Moves all extremities. Strength/ROM intact, No edema, No calf tenderness. NEURO: Alert. Cranial nerves II through XII intact. Good gait. Good coordination SKIN: Warm, dry. Normal Color Course Vital Signs Vital signs: Vital Signs Temperature 98.2 F 12/17/24 06:14 Pulse Rate 71 12/17/24 06:14 Respiratory Rate 22 H 12/17/24 06:14 Blood Pressure 123/84 12/17/24 06:14 Pulse Oximetry 99 12/17/24 06:14 Oxygen Delivery Room Air 12/17/24 06:14 Temperature 98.2 F 12/17/24 06:14 Pulse Rate 66 12/17/24 08:42 Respiratory Rate 18 12/17/24 08:42 Blood Pressure 127/85 12/17/24 08:42 Pulse Oximetry 96 12/17/24 08:42 Oxygen Delivery Room Air 12/17/24 07:14 Medical Decision Making MDM Narrative Medical decision making narrative: 49-year-old male presents emergency department for evaluation for increased cough and wheeze after running out of his albuterol inhaler last night. Patient was treated with nebulized albuterol and did feel improved emergency department. Chest x-ray shows no acute cardiopulmonary abnormality. Patient was negative for COVID flu and RSV. Patient was encouraged to refrain from smoking. Differential Diagnosis Differential Diagnosis: COVID flu RSV, pneumonia, COPD, bronchitis Vital Signs Vital Signs: Vital Signs Temperature 98.2 F 12/17/24 06:14 Pulse Rate 71 12/17/24 06:14 Respiratory Rate 22 H 12/17/24 06:14 Blood Pressure 123/84 12/17/24 06:14 Pulse Oximetry 99 12/17/24 06:14 Oxygen Delivery Room Air 12/17/24 06:14 Temperature 98.2 F 12/17/24 06:14 Pulse Rate 66 12/17/24 08:42 Respiratory Rate 18 12/17/24 08:42 Blood Pressure 127/85 12/17/24 08:42 Pulse Oximetry 96 12/17/24 08:42 Oxygen Delivery Room Air 12/17/24 07:14 Lab Data Lab results reviewed: Yes I reviewed the patient's lab results. Labs: Lab Results 12/17/24 Range/Units 07:26 Influenza A (RT-PCR) Negative (Negative) Influenza B (RT-PCR) Negative (Negative) RSV (RT-PCR) Negative (Negative) SARS-CoV-2 RNA (RT-PCR) Negative (Negative) Imaging Data Radiologist's impression: Impressions Chest X-Ray 12/17/24 07:57 IMPRESSION: 1. No acute cardiopulmonary findings. Discharge Plan Discharge Clinical Impression: Bronchitis Patient Disposition: Home Condition: Stable Instructions: Antibiotic Form, Chronic Cough (ED) Additional Instructions: Quit smoking. Albuterol as needed for shortness of breath. Have close follow- up with your primary care physician. Patient Language: Danish Prescriptions: New albuterol sulfate 90 mcg/actuation HFA aerosol inhaler 1 puff inhalation QID Qty: 6.7 0RF No Action prednisone 50 mg tablet 50 mg PO DAILY 5 Days Qty: 5 0RF albuterol sulfate 90 mcg/actuation HFA aerosol inhaler 1 puff inhalation QID Qty: 6.7 0RF prednisone 50 mg tablet 50 mg PO DAILY 5 Days Qty: 5 0RF albuterol sulfate 90 mcg/actuation HFA aerosol inhaler 2 puff inhalation QID PRN (Reason: shortness of breath or wheezing) Qty: 8.5 0RF Follow-up/Referrals: PHYSICIAN,HEEL WASHER STRINGING MACHINE OPERATOR [Primary Care Provider, Internal Medicine] Stand Alone Forms: Work/School Release IP
[2024-12-17 07:53] VITALS: PULSE 63; RESP 14
[2024-12-17] MEDS: ALBUTEROL SULFATE NEB 2.5 MG/3 ML INH INHALATION (07:53)
[2024-12-17 08:06] LABS: Influenza A QL RT-PCR Negative (Negative); Influenza B QL RT-PCR Negative (Negative); RSV RNA, RT-PCR Negative (Negative); SARS-CoV-2 RNA PCR Negative (Negative)
[2024-12-17 08:42] VITALS: BP 127/85; PULSE 66; RESP 18; O2SAT 96
== END 2024-12-17 08:44 | disposition home or self-care (01) ==
PROVIDERS: Emergency Provider Emergency Medicine
DX: J42 Unspecified chronic bronchitis (principal); Z20.822 Contact with and (suspected) exposure to COVID-19; F17.200 Nicotine dependence, unspecified, uncomplicated
CPT/HCPCS: 71046; 87637; 94640; 99283

== ENCOUNTER 2025-02-03 03:06 | Emergency (ER) | payer OTHER, SELFPAY ==
--- NOTE | ~2025-02-03 | XR_ITS ---
Examination: XR chest 2V Clinical History: shortness of breath, + wheezing Comparison: 12/17/2024 Technique: PA and Lateral Findings: Cardiomediastinal silhouette normal size and configuration. Lungs clear. No acute bony abnormality. IMPRESSION: 1. No acute cardiopulmonary findings. Reviewed, dictated and finalized at location R. EMENT DIRECTOR
[2025-02-03 03:19] VITALS: BP 137/90; PULSE 55; RESP 13; TEMP 36.7; O2SAT 94
[2025-02-03 03:55] VITALS: O2SAT 95
--- NOTE | 2025-02-03 04:06 | ED_ITS ---
HPI - SOB/Dyspnea General Chief Complaint: Shortness of Breath/Dyspnea <Allie Huang APRN - Last Filed: 02/03/25 04:45> Stated Complaint: Short of breath <Allie Huang APRN - Last Filed: 02/03/25 04:45> Time Seen by Provider: 02/03/25 03:46 <Allie Huang APRN - Last Filed: 02/03/25 04:45> History of Present Illness HPI Narrative: Patient is a 49-year-old male who presents to the ER with an asthma exacerbation. He reports his symptoms worsened earlier today and he has run out of his home inhaler. Patient denies any congestion, acute cough, sore throat, recent fevers, chest pain or headache. He endorses a history of asthma but denies any other medical history relevant to this ER visit. Patient reports he is a cigarette smoker but he is attempting to quit. <Allie Huang APRN - Last Filed: 02/03/25 04:45> Related Data Allergies/Adverse Reactions: Allergies Allergy/AdvReac Type Severity Reaction Status Date / Time No Known Allergies Allergy Verified 10/09/24 01:54 <Allie Huang APRN - Last Filed: 02/03/25 04:45> Review of Systems Review of Systems: All systems reviewed & are unremarkable except as noted in HPI and below <Allie Huang APRN - Last Filed: 02/03/25 04:45> [facility] Social History Social History: Social History Smoking status: Current every day smoker Gender identity (if verbalized by the patient): Male <Allie Huang APRN - Last Filed: 02/03/25 04:45> Exam Narrative: GENERAL: Well appearing, thin, non-toxic, in no acute distress. HEAD: Normocephalic, atraumatic. NECK: Supple. No adenopathy, no masses. RESPIRATORY: Airway patent, respirations nonlabored. + rhonchi and wheezing. CARDIOVASCULAR: Regular rate and rhythm without murmurs, rubs, or gallops. Peripheral pulses 2+ and equal bilaterally. ABDOMINAL: Soft, nontender, nondistended, no hepatosplenomegaly. Normoactive BS. MUSCULOSKELETAL: Moves all extremities. Strength/ROM intact without gross deformities. SKIN: Warm, dry, normal color. No rashes. NEURO: A&O X3. Speech clear. Cranial nerves II-XII intact. No ataxic movements. PSYCHIATRIC: Appropriate mood and affect. Normal interaction. <Allie Huang, INDUSTRIAL SAFETY AND HEALTH MANAGER - Last Filed: 02/03/25 04:45> Course ELECTRONIC PUBLICATIONS SPECIALIST/PA Physician Supervision This visit was performed by both a physician and an APC. I performed all aspects of the MDM as documented. <Trip Carrera, - Last Filed: 02/03/25 07:09> Vital Signs Vital signs: Vital Signs Temperature 98.0 F 02/03/25 03:19 Pulse Rate 55 L 02/03/25 03:19 Respiratory Rate 13 02/03/25 03:19 Blood Pressure 137/90 02/03/25 03:19 Pulse Oximetry 94 02/03/25 03:19 Oxygen Delivery Room Air 02/03/25 03:19 Temperature 97.8 F 02/03/25 05:42 Pulse Rate 64 02/03/25 05:42 Respiratory Rate 17 02/03/25 05:42 Blood Pressure 131/76 02/03/25 05:42 Pulse Oximetry 96 02/03/25 05:42 Oxygen Delivery Room Air 02/03/25 03:55 <Allie Huang, INDUSTRIAL SAFETY AND HEALTH MANAGER - Last Filed: 02/03/25 04:45> Vital Signs Temperature 98.0 F 02/03/25 03:19 Pulse Rate 55 L 02/03/25 03:19 Respiratory Rate 13 02/03/25 03:19 Blood Pressure 137/90 02/03/25 03:19 Pulse Oximetry 94 02/03/25 03:19 Oxygen Delivery Room Air 02/03/25 03:19 Temperature 97.8 F 02/03/25 05:42 Pulse Rate 64 02/03/25 05:42 Respiratory Rate 17 02/03/25 05:42 Blood Pressure 131/76 02/03/25 05:42 Pulse Oximetry 96 02/03/25 05:42 Oxygen Delivery Room Air 02/03/25 03:55 <Trip Carrera DO - Last Filed: 02/03/25 07:09> MDM MDM Narrative Medical decision making narrative: Patient is a 49-year-old male who presents to the ER with an asthma exacerbation. He reports his symptoms worsened earlier today and he has run out of his home inhaler. Patient denies any congestion, acute cough, sore throat, recent fevers, chest pain or headache. He endorses a history of asthma but denies any other medical history relevant to this ER visit. Patient reports he is a cigarette smoker but he is attempting to quit. At time of arrival in the ER, patient received a DuoNeb via EMS and reports his symptoms have improved. Labs Ordered: COVID/flu/RSV swab Imaging Ordered: Chest x-ray Medications Ordered: Prednisone 60 mg p.o., DuoNeb 0500- Care signed out to Dr. Carrera. <Allie Huang, INDUSTRIAL SAFETY AND HEALTH MANAGER - Last Filed: 02/03/25 04:45> Patient is a 49-year-old male who presents to the ER with an asthma exacerbation. He reports his symptoms worsened earlier today and he has run out of his home inhaler. Patient denies any congestion, acute cough, sore throat, recent fevers, chest pain or headache. He endorses a history of asthma but denies any other medical history relevant to this ER visit. Patient reports he is a cigarette smoker but he is attempting to quit. At time of arrival in the ER, patient received a DuoNeb via EMS and reports his symptoms have improved. Labs Ordered: COVID/flu/RSV swab Imaging Ordered: Chest x-ray Medications Ordered: Prednisone 60 mg p.o., DuoNeb 0500- Care signed out to Dr. Carrera. On reassessment patient is resting comfortably. No acute distress, notes that his breathing feels great at this time, auscultation of the lungs is clear, patient is moving great air, no respiratory distress. Patient denies any fevers or feeling ill recently. Swab canceled. Patient is out of his albuterol solution, informed of plan to prescribe the solution and steroids and follow up with primary care physician with strict return precautions. Patient demonstrates understanding and agreement plan of care per <Trip Carrera, - Last Filed: 02/03/25 07:09> Differential Diagnosis Differential Diagnosis: Asthma exacerbation, bronchitis, pneumonia <Allieneema Huang APRN - Last Filed: 02/03/25 04:45> Imaging Data Radiologist's impression: ITS Impressions Chest X-Ray 02/03/25 06:09 IMPRESSION: 1. No acute cardiopulmonary findings. <Allie Huang APRN - Last Filed: 02/03/25 04:45> ITS Impressions Chest X-Ray 02/03/25 06:09 IMPRESSION: 1. No acute cardiopulmonary findings. <Trip Carrera DO - Last Filed: 02/03/25 07:09> Discharge Plan Discharge Clinical Impression: Asthma exacerbation Qualifiers: Asthma severity: unspecified severity Asthma persistence: unspecified Qualified Code(s): J45.901 - Unspecified asthma with (acute) exacerbation <Allie Huang APRN - Last Filed: 02/03/25 04:45> Patient Disposition: Home <Allie Huang APRN - Last Filed: 02/03/25 04:45> Condition: Stable <Allie Huang APRN - Last Filed: 02/03/25 04:45> Instructions: Antibiotic Form, Reactive Airways Disease (ED) <Allie Huang APRN - Last Filed: 02/03/25 04:45> Additional Instructions: Take the steroid as prescribed to completion, fill the albuterol solution and using nebulizer machine when he gets home with another treatment 4 hours later, after which take the breathing treatments every 4 hours as needed. Follow-up with your primary care physician in the next few days for reassessment. Return immediately to the emergency department for any new or concerning symptoms especially inability to control your symptoms at home despite medications or any emergent concerns for life, limb, eyesight. <Allie Huang APRN - Last Filed: 02/03/25 04:45> Patient Language: Romansh <Allie Huang APRN - Last Filed: 02/03/25 04:45> Prescriptions: New albuterol sulfate 1.25 mg/3 mL solution for nebulization 1.25 mg inhalation Q4H Qty: 75 0RF prednisone 20 mg tablet 40 mg PO DAILY 5 Days Qty: 10 0RF No Action albuterol sulfate 90 mcg/actuation HFA aerosol inhaler 1 puff inhalation QID Qty: 6.7 0RF prednisone 50 mg tablet 50 mg PO DAILY 5 Days Qty: 5 0RF albuterol sulfate 90 mcg/actuation HFA aerosol inhaler 1 puff inhalation QID Qty: 6.7 0RF prednisone 50 mg tablet 50 mg PO DAILY 5 Days Qty: 5 0RF albuterol sulfate 90 mcg/actuation HFA aerosol inhaler 2 puff inhalation QID PRN (Reason: shortness of breath or wheezing) Qty: 8.5 0RF <Allie Huang APRN - Last Filed: 02/03/25 04:45> Follow-up/Referrals: PHYSICIAN,RN PARALEGAL [Primary Care Provider, Internal Medicine] Juan Diaz MD [Physician, Family Practice] - 2 Days <Allie Huang APRN - Last Filed: 02/03/25 04:45> Time of Disposition: 05:30 <Allie Huang APRN - Last Filed: 02/03/25 04:45> 05:30 <Trip Carrera DO - Last Filed: 02/03/25 07:09>
[2025-02-03] MEDS: IPRATROPIUM 0.5 MG/ALBUTEROL SULFATE 2.5 MG (BASE) AMPUL.NEB 3 ML INHALATION ×3 (04:24→04:25)
[2025-02-03 04:29] VITALS: PULSE 63; RESP 16
[2025-02-03 05:36] VITALS: PULSE 74; RESP 13
[2025-02-03 05:42] VITALS: BP 131/76; PULSE 64; RESP 17; TEMP 36.6; O2SAT 96
== END 2025-02-03 05:43 | disposition home or self-care (01) ==
PROVIDERS: Emergency Provider Student in an Organized Health Care Education/Training Program
DX: J45.901 Unspecified asthma with (acute) exacerbation (principal); Z20.822 Contact with and (suspected) exposure to COVID-19; F17.210 Nicotine dependence, cigarettes, uncomplicated
CPT/HCPCS: 71046; 94640; 99283; J7512